=== PATIENT | male | born 1950 | race Caucasian/White ===

== ENCOUNTER → 2016-09-06 | Outpatient (CLI) | payer MEDICARE ==
--- NOTE | 2016-09-06 15:41 | PN ---
DATE OF SERVICE: 09/06/2016 This patient is a 66-year-old gentleman who has been followed in the sleep center for treatment of obstructive sleep apnea-hypopnea syndrome. Last titration was done in May of 2014. At that time recommended pressure was 16/12 cm of water. Patient continues to use his equipment every night for the whole night without any significant problems. Patient brought his CPAP unit. I checked his CPAP equipment. The patient used it 100% of the time for more than 4 hours; average is 8 hours 12 minutes. Leak is not significant at 2%. BiPAP pressure is 16/12. Apnea-hypopnea index is only 1.2, which is perfect. No symptoms of sleepiness during the day. [place] Sleepiness Scale is 5. MEDICATIONS: 1. Claritin-D. 2. Lisinopril. PHYSICAL EXAMINATION: Patient in no distress. VITAL SIGNS: BP 151/90, HR 66, RR 16. Height 5 feet 11 inches. Weight 290. BMI 40.4. Temperature 97.3. Oxygen saturation at room air 95%. HEENT: PERRLA, EOMI. Evaluation of oropharynx showed tongue protrudes midline; extremely low position of soft palate. NECK: Supple. No JVD. Thyroid is not palpable. LUNGS: Clear to percussion and to auscultation. Good air exchange. No wheezing or rhonchi. HEART: S1, S2 regular. No murmurs, gallops or rubs. ABDOMEN: Obese. EXTREMITIES: No clubbing or cyanosis. DIRECTOR OF STRATEGIC INITIATIVES: Awake, alert, and oriented x3. Cranial nerves 2 to 7 intact. There is no fasciculation or atrophy noted. No focal deficits observed. IMPRESSION: 1. Obstructive sleep apnea/hypopnea syndrome, controlled with BiPAP at the pressure 16/12 cm of water. 2. Hypertension. 3. Allergies. 4. Obesity; body mass index 40.4. 5. History of carpal tunnel syndrome, status post surgical treatment. 6. Status post hernia repair. 7. Back problem. 8. History of fracture of right hand in the past. PLAN: 1. Continue treatment with BiPAP every night for the whole night. 2. Losing weight. 3. Prescription for all necessary CPAP supplies, including full-face mask, tube, filters. 4. No driving if feeling any sleepiness. 5. Follow-up visit in one year. Thank you very much for allowing me to participate in the management of your patient. Sincerely, Freddy Aden MD, PhD, FAASM. Diplomat of [place] [employer], Sleep Medicine Board by [place], [place] [employer]
== END | disposition home or self-care (01) ==
LOC: SLEEP 11:22
PROVIDERS: ATTEND Internal Medicine
DX: G47.33 Obstructive sleep apnea (adult) (pediatric) (principal); Z79.899 Other long term (current) drug therapy; I10 Essential (primary) hypertension; E66.9 Obesity, unspecified; Z68.41 Body mass index [BMI] 40.0-44.9, adult; Z91.09 Other allergy status, other than to drugs and biological substances

== ENCOUNTER → 2017-09-26 | Outpatient (CLI) | payer MEDICARE ==
--- NOTE | 2017-09-26 14:43 | PN ---
PROGRESS NOTE DATE OF SERVICE: 09/26/2017 67-year-old gentleman who has been followed in Sleep Center for treatment of obstructive sleep apnea-hypopnea syndrome. The patient successfully continued to use his CPAP equipment every night for the whole night. Sometimes he feels dryness in his mouth. He is using full-face mask and I checked his BiPAP unit. BiPAP pressure 16/12 cm of water, usage is 100% of the the time. Average 8 hours 18 minutes per night. Leak is 4% of the time, which is acceptable. Apnea-hypopnea index reading only 1.5 for the last month, which is perfect. Humidity is at 0. [place] Sleepiness Scale is 4, which is totally normal. MEDICATIONS: Lisinopril and Claritin D. PHYSICAL EXAM: Patient in no distress. BP 133/70, HR 70, RR 16, height 5 feet 11 inches, weight 291, BMI 40.5, temperature 98.2, oxygen saturation on room air 94%. Oropharynx extremely low position of soft palate. ABDOMEN: Obese. Neck Supple, no JVD. Thyroid is not palpable. LUNGS Clear to percussion and to auscultation. Good air exchange. No wheezing or rhonchi. HEART S1, S2 regular. No murmurs, gallops, or rubs. ABDOMEN: Obese. Soft and nontender. Bowel sounds are present. No organomegaly appreciated. EXTREMITIES No clubbing or cyanosis. BUSINESS RESILIENCY MANAGER Awake, alert, and oriented X3. Cranial nerves 2 to 7 intact. There is no fasciculation or atrophy. noted. No focal deficits observed. IMPRESSION: 1. Obstructive sleep apnea-hypopnea syndrome, on full control with BiPAP 16/12 cm of water. Patient demonstrated 100% compliance with treatment benefitting from treatment. 2. Hypertension. 3. Allergy. 4. Obesity. 5. History of carpal tunnel syndrome, status post surgical treatment. 6. Back problem. 7. Status post hernia repair. PLAN: 1. Patient will continue to use BiPAP equipment every night for the whole night. 2. Prescription for all necessary BiPAP supplies including mask, tube, filters. 3. The patient should increase temperature in the humidifier, I would say start with level 2. 4. No driving if feeling sleepiness. 5. Losing weight. 6. Followup visit in 1 year or earlier if patient has any problems. Thank you very much for allowing me to participate in the management of your patient. Sincerely, Freddy Aden MD, PhD, FAASM Diplomat of [employer] Computer Artist of [facility] Kite LICHA / ISAEL: [id number] /
== END | disposition home or self-care (01) ==
LOC: SLEEP 11:43
PROVIDERS: ATTEND Internal Medicine
DX: G47.33 Obstructive sleep apnea (adult) (pediatric) (principal); I10 Essential (primary) hypertension; T78.40XA Allergy, unspecified, initial encounter; E66.9 Obesity, unspecified; Z99.89 Dependence on other enabling machines and devices; Z79.899 Other long term (current) drug therapy; Z68.41 Body mass index [BMI] 40.0-44.9, adult; Z87.39 Personal history of other diseases of the musculoskeletal system and connective tissue; Z98.890 Other specified postprocedural states

== ENCOUNTER → 2018-10-02 | Outpatient (CLI) | payer MEDICARE ==
--- NOTE | 2018-10-02 11:47 | SFUN ---
SLEEP CENTER FOLLOW UP NOTE DATE OF SERVICE: 10/02/2018. The 68-year-old gentleman has been followed in sleep center for treatment of obstructive sleep apnea-hypopnea syndrome. The patient continued to use his BiPAP equipment every night for the whole night. Recently started to experience some dryness in his mouth, started to use a humidifier more than before. I checked his BiPAP unit. BiPAP pressure is 16/12 cm of water. Leak is only 1% according to the machine. Apnea-hypopnea index is 3.8, which is totally normal. Usage is 30 out of 30 nights more than 4 hours. Average usage 8 hours and 24 minutes per night. [place] Sleepiness Scale today is 4. MEDICATIONS: Lisinopril, Claritin-D. PHYSICAL EXAMINATION: During physical exam, patient in no distress. VITAL SIGNS: BP 167/83, HR 64, RR 16, height 5 feet 11 inches, weight 302 pounds which is around 11 pounds more than during the last visit, body mass index 41.9, temperature 97.8, oxygen saturation at room air 94%. HEENT: PERRLA, EOMI. Oropharynx extremely low soft palate, Mallampati 4. NECK: Supple, no JVD. Thyroid is not palpable. LUNGS: Clear to percussion and to auscultation. Good air exchange. No wheezing or rhonchi. HEART: S1, S2 regular. No murmurs, gallops, or rubs. ABDOMEN: Obese. EXTREMITIES : No clubbing or cyanosis. CYBER ANALYST : Awake, alert, and oriented X3. Cranial nerves 2 to 7 intact. There is no fasciculation or atrophy. noted. No focal deficits observed. IMPRESSION: 1. Obstructive sleep apnea-hypopnea syndrome. Patient demonstrated 100% compliance with treatment, benefitting from treatment, experiencing some difficulties with high pressure during inhalation. 2. Hypertension. 3. Allergy. 4. Obesity. 5. History of carpal tunnel syndrome, status post surgical treatment bilaterally. 6. Back problems. 7. Status post hernia repair. PLAN: 1. I decreased inspiratory pressure to 14 cm of water and left expiratory pressure the same 12 cm of water. 2. Patient will continue to use BiPAP equipment every night for the whole night. 3. Losing weight. 4. Sleep hygiene with regular time in bed for at least 8 hours. 5. Prescription for all necessary supplies including mask, tube, filters. I believe patient is a candidate for trial with DreamWear full face mask. Thank you very much for allowing me to participate in management of your patient. Sincerely, Freddy Aden MD, PhD, FAASM Diplomat of [employer] Song Plugger of [facility] Emery MMODL / KIAHN: [id number] /
== END ==
LOC: SLEEP 10:13
PROVIDERS: ATTEND Internal Medicine
DX: G47.33 Obstructive sleep apnea (adult) (pediatric) (principal); I10 Essential (primary) hypertension; E66.9 Obesity, unspecified; M54.89 Other dorsalgia; T78.40XA Allergy, unspecified, initial encounter; Z98.890 Other specified postprocedural states; Z99.89 Dependence on other enabling machines and devices; Z79.899 Other long term (current) drug therapy

== ENCOUNTER → 2019-10-22 | Outpatient (CLI) | payer MEDICARE ==
--- NOTE | 2019-10-22 18:29 | SFUN ---
SLEEP CENTER FOLLOW UP NOTE DATE OF SERVICE: 10/22/2019 This patient is a 69-year-old gentleman who has been followed in Sleep Center for treatment of obstructive sleep apnea-hypopnea syndrome. The patient continues to use his CPAP equipment every night. He actually has several CPAP units in different locations. No snoring with the machine; sleeps well. [place] Sleepiness Scale is 4. I checked his CPAP unit. CPAP pressure is 14 cm of water. Leak is only 1%. Apnea- hypopnea index 2.9, which is absolutely perfect. Range of periodic breathing 2%, which is acceptable. MEDICATIONS: Lisinopril, Claritin-D. PHYSICAL EXAMINATION: GENERAL: A pleasant patient in no distress. VITAL SIGNS: BP 129/75, HR 64, RR 16, height 5 feet 11 inches, weight 297, temperature 97.9, oxygen saturation at room air 96%. HEENT: PERRLA, EOMI. Evaluation of oropharynx showed tongue protrudes midline. Extremely low position of soft palate. Mallampati IV. NECK: Supple. No JVD. Thyroid is not palpable. LUNGS: Clear to percussion and to auscultation. Good air exchange. No wheezing or rhonchi. HEART: S1, S2 regular. No murmurs, gallops or rubs. ABDOMEN: Obese. EXTREMITIES: No clubbing or cyanosis. CRAY FISHING HAND: Awake, alert, and oriented X3. Cranial nerves 2 to 7 intact. There is no fasciculation or atrophy. noted. No focal deficits observed. IMPRESSION: 1. Obstructive sleep apnea-hypopnea syndrome. The patient demonstrated good compliance with treatment, benefitting from treatment. 2. Hypertension. 3. Allergies. 4. Obesity. 5. History of carpal tunnel syndrome, status post surgical treatment bilaterally. 6. Back problems. 7. Status post hernia repair. PLAN: 1. Continue treatment with PAP therapy every night for the whole night. 2. Losing weight. 3. Sleep hygiene with regular time in bed for at least 7-1/2 to 8 hours. 4. No driving if feeling any sleepiness. 5. We will maintain all necessary prescriptions for PAP supplies, including mask, tube, filters. Thank you very much for allowing me to participate in the management of your patient. Sincerely, Freddy Aden MD, PhD, FAASM Diplomat of [employer] Investment Accountant of [facility] [place] MMPIETER / ISAEL: [id number] /
== END | disposition home or self-care (01) ==